=== PATIENT | female | born 1950 | race Caucasian/White ===

== ENCOUNTER 2020-11-01 08:34 | Emergency (ER) | payer MEDICARE, OTHER ==
[2020-11-01] MEDS: Sodium Chloride 0.9% 1,000 ML IV SCH (09:07)
--- NOTE | 2020-11-01 09:10 | EDM.PDOC ---
ED HPI GENERAL MEDICAL PROBLEM - General Chief Complaint: Gastrointestinal Problem Stated Complaint: COVID SYMPTOMS Time Seen by Provider: 11/01/20 08:50 Source of Information: Reports: Patient History Limitations: Reports: No Limitations - History of Present Illness INITIAL COMMENTS - FREE TEXT/NARRATIVE: States she has had diarrhea since the 21 of october , diarrhea ,water stools with cramps in the abdomen . has been persistent despite having a televisit with her provider on tuesday and being told to stay on BRAT diet today still has diarrhea and lost her sense of taste and smell has history of diverticulitis and Cl diff ( after use of Cipro for diverticulitis) Went to visit mother in skilled nursing ( has COVID) Onset: Gradual Onset Date: 10/21/20 Duration: Week(s):, Getting Worse Location: Reports: Abdomen Quality: Reports: Ache, Pressure Severity: Moderate Improves with: Reports: None Worsens with: Reports: None Context: Reports: Sick Contact Associated Symptoms: Reports: Diaphoresis, Loss of Appetite, Malaise, Weakness, Other (loss of sense of taste and smell) - Related Data Allergies Allergy/AdvReac Type Severity Reaction Status Date / Time azithromycin Allergy Hives Verified 11/01/20 08:58 nitrofurantoin AdvReac Stomach Verified 11/01/20 08:58 [From Macrobid] Upset Sulfa (Sulfonamide AdvReac Stomach Verified 11/01/20 08:58 Antibiotics) Upset Home Meds: Home Meds Aspirin [Ecotrin EC] 81 mg PO DAILY 12/01/16 [History] Calcium Carbonate/Vitamin D3 [Calcium 1,000 + D3 Caplet] 1 each PO DAILY 12/01/16 [History] Carboxymethylcellulos/Glycerin [Lubricant 0.5-0.9% Eye Drops] 1 drop EYEBOTH BID 12/01/16 [History] Ergocalciferol (Vitamin D2) [Vitamin D] 400 unit PO DAILY 12/01/16 [History] Folic Acid 1 tab PO DAILY 12/01/16 [History] Lutein 20 mg PO DAILY 12/01/16 [History] Multivitamin [Multi-Vitamin Daily] 1 tab PO DAILY 12/01/16 [History] Omeprazole 40 mg PO DAILY 12/01/16 [History] Pilocarpine HCl 5 mg PO QID 12/01/16 [History] Ranitidine [Zantac] 150 mg PO BID PRN 12/01/16 [History] atorvaSTATin [Lipitor] 20 mg PO BEDTIME 12/01/16 [History] Ondansetron [Zofran ODT] 4 mg PO Q6H PRN #20 tab.dis 11/01/20 [Rx] metroNIDAZOLE [Metronidazole] 500 mg PO BID #20 tablet 11/01/20 [Rx] Past Medical History HEENT History: Reports: Glaucoma, Other (See Below) Other HEENT History: BILAT NUCLEAR SCLEROSIS Cardiovascular History: Reports: High Cholesterol Gastrointestinal History: Reports: GERD - Past Surgical History Female Surgical History: Reports: Section, Hysterectomy Social & Family History - Tobacco Use Tobacco Use Status *Q: Never Tobacco User - Caffeine Use Caffeine Use: Reports: Coffee - Recreational Drug Use Recreational Drug Use: No ED ROS GENERAL - Review of Systems Review Of Systems: See Below Constitutional: Reports: Malaise, Weakness, Fatigue, Diaphoresis, Decreased Appetite, Weight Loss. Denies: Fever, Chills HEENT: Reports: No Symptoms Respiratory: Reports: No Symptoms Cardiovascular: Reports: No Symptoms Endocrine: Reports: Fatigue GI/Abdominal: Reports: Abdominal Pain, Anorexia, Diarrhea, Decreased Appetite, Distension, Flatus, Nausea Musculoskeletal: Reports: No Symptoms Skin: Reports: No Symptoms Neurological: Reports: No Symptoms Psychiatric: Reports: Anxiety Hematologic/Lymphatic: Reports: No Symptoms Immunologic: Reports: No Symptoms ED EXAM, GI/ABD - Physical Exam Exam: See Below Exam Limited By: No Limitations General Appearance: Alert, WD/WN, No Apparent Distress. No: Mild Distress, Active Emesis Eyes: Bilateral: EOMI Ears: Normal External Exam Nose: Normal Inspection Throat/Mouth: Normal Oropharynx (dry mucous membranes) Head: Atraumatic Neck: Supple, Non-Tender Respiratory/Chest: Lungs Clear, Normal Breath Sounds Cardiovascular: Regular Rate, Rhythm GI/Abdominal Exam: Soft, Non-Tender, Distended, Abnormal Bowel Sounds (hypera ctive BS) Back Exam: Full Range of Motion Extremities: Normal Inspection, No Pedal Edema Neurological: Alert, Oriented, CN II-XII Intact Psychiatric: Normal Affect, Normal Mood Skin Exam: Warm, Dry Course - Vital Signs Last Recorded V/S: Last Vital Signs Temp 36.4 C 11/01/20 08:50 Pulse 71 12/05/20 10:44 Resp 16 11/01/20 10:44 BP 134/67 11/01/20 10:44 Pulse Ox 100 11/01/20 10:44 - Orders/Labs/Meds Orders: Active Orders 24 hr Category Date Time Status Abdomen Pelvis w Cont [CT] Stat Exams 11/01/20 08:59 Taken STOOL CULTURE Stat Lab 11/01/20 08:58 Ordered Sodium Chloride 0.9% [Normal Saline] 1,000 ml Med 11/01/20 09:00 Active IV ASDIRECTED Medication Orders Sodium Chloride (Normal Saline) 1,000 mls @ 999 mls/hr IV ASDIRECTED RADHA Last Admin: 11/01/20 09:07 Dose: 999 mls/hr Documented by: RAMON Labs: Laboratory Tests 11/01/20 11/01/20 11/01/20 Range/Units 09:10 09:15 09:15 WBC 6.0 (3.0-10.3) x10-3/uL RBC 4.46 (3.60-5.20) x10(6)uL Hgb 13.2 (11.4-15.5) g/dL Hct 40.7 (34.2-48.2) % MCV 91.2 (76.7-100.5) fL MCH 29.7 (23.9-33.9) pg MCHC 32.5 (31.9-34.8) g/dL RDW 13.5 (12.3-16.5) % Plt Count 224 (151-488) x10(3)uL MPV 8.5 (7.1-12.4) fL Neut % (Auto) 72.5 (30.8-76.2) % Lymph % (Auto) 18.1 L (18.4-52.1) % Hendricks % (Auto) 7.9 (4.4-15.7) % Eos % (Auto) 0.8 (0.6-8.1) % Baso % (Auto) 0.7 (0.2-1.5) % Neut # (Auto) 4.4 (1.5-6.3) x10-3/uL Lymph # (Auto) 1.1 (1.0-4.4) x10-3/uL Hendricks # (Auto) 0.5 (0.3-1.0) x10-3/uL Eos # (Auto) 0.1 (0.0-0.8) x10-3/uL Baso # (Auto) 0.0 (0.0-0.1) x10-3/uL Sodium 141 (135-145) mmol/L Potassium 4.7 (3.5-5.3) mmol/L Chloride 105 (100-110) mmol/L Carbon Dioxide 26 (21-32) mmol/L BUN 9 (7-18) mg/dL Creatinine 0.9 (0.55-1.02) mg/dL Est Cr Clr Drug Dosing 45.41 mL/min Estimated GFR (MDRD) > 60 (>60) BUN/Creatinine Ratio 10.0 (9-20) Glucose 94 (80-116) mg/dL Calcium 8.8 (8.6-10.2) mg/dL Total Bilirubin 0.6 (0.1-1.3) mg/dL AST 19 (5-25) IU/L ALT 26 (12-36) U/L Alkaline Phosphatase 42 L (56-112) IU/L Total Protein 6.9 (6.0-8.0) g/dL Albumin 3.7 (3.2-4.6) g/dL Globulin 3.2 g/dL Albumin/Globulin Ratio 1.2 Urine Color (YELLOW) Urine Appearance (CLEAR) Urine pH (5.0-6.5) Ur Specific [place] (1.010-1.025) Urine Protein (NEGATIVE) mg/dL Urine Glucose (UA) (NORMAL) mg/dL Urine Ketones (NEGATIVE) mg/dL Urine Occult Blood (NEGATIVE) Urine Nitrite (NEGATIVE) Urine Bilirubin (NEGATIVE) Urine Urobilinogen (NEGATIVE) mg/dL Ur Leukocyte Esterase (NEGATIVE) Urine RBC (0-5) Urine WBC (0-5) Ur Squamous Epith Cells (NS,R,O) SARS-CoV-2 RNA (KEARA) Negative (NEGATIVE) 11/01/20 Range/Units 10:10 WBC (3.0-10.3) x10-3/uL RBC (3.60-5.20) x10(6)uL Hgb (11.4-15.5) g/dL Hct (34.2-48.2) % MCV (76.7-100.5) fL MCH (23.9-33.9) pg MCHC (31.9-34.8) g/dL RDW (12.3-16.5) % Plt Count (151-488) x10(3)uL MPV (7.1-12.4) fL Neut % (Auto) (30.8-76.2) % Lymph % (Auto) (18.4-52.1) % Hendricks % (Auto) (4.4-15.7) % Eos % (Auto) (0.6-8.1) % Baso % (Auto) (0.2-1.5) % Neut # (Auto) (1.5-6.3) x10-3/uL Lymph # (Auto) (1.0-4.4) x10-3/uL Hendricks # (Auto) (0.3-1.0) x10-3/uL Eos # (Auto) (0.0-0.8) x10-3/uL Baso # (Auto) (0.0-0.1) x10-3/uL Sodium (135-145) mmol/L Potassium (3.5-5.3) mmol/L Chloride (100-110) mmol/L Carbon Dioxide (21-32) mmol/L BUN (7-18) mg/dL Creatinine (0.55-1.02) mg/dL Est Cr Clr Drug Dosing mL/min Estimated GFR (MDRD) (>60) BUN/Creatinine Ratio (9-20) Glucose (80-116) mg/dL Calcium (8.6-10.2) mg/dL Total Bilirubin (0.1-1.3) mg/dL AST (5-25) IU/L ALT (12-36) U/L Alkaline Phosphatase (56-112) IU/L Total Protein (6.0-8.0) g/dL Albumin (3.2-4.6) g/dL Globulin g/dL Albumin/Globulin Ratio Urine Color Yellow (YELLOW) Urine Appearance Clear (CLEAR) Urine pH 7.0 H (5.0-6.5) Ur Specific [place] 1.010 (1.010-1.025) Urine Protein Negative (NEGATIVE) mg/dL Urine Glucose (UA) Normal (NORMAL) mg/dL Urine Ketones Negative (NEGATIVE) mg/dL Urine Occult Blood Negative (NEGATIVE) Urine Nitrite Negative (NEGATIVE) Urine Bilirubin Negative (NEGATIVE) Urine Urobilinogen Normal (NEGATIVE) mg/dL Ur Leukocyte Esterase Negative (NEGATIVE) Urine RBC 0-5 (0-5) Urine WBC 0-5 (0-5) Ur Squamous Epith Cells Rare (NS,R,O) SARS-CoV-2 RNA (KEARA) (NEGATIVE) Meds: Medications Generic Name Dose Route Start Last Admin Trade Name Freq PRN Reason Stop Dose Admin Sodium Chloride 1,000 mls @ 999 mls/hr 11/01/20 09:00 11/01/20 09:07 Normal Saline IV 999 mls/hr ASDIRECTED RADHA Administration Discontinued Medications Generic Name Dose Route Start Last Admin Trade Name Freq PRN Reason Stop Dose Admin Iopamidol 100 ml 11/01/20 10:01 11/01/20 10:56 Isovue-370 (76%) IV 11/01/20 10:02 54 ml . DIRECTED ONE Administration Metronidazole 500 mg 11/01/20 09:04 11/01/20 09:16 Flagyl PO 11/01/20 09:05 500 mg ONETIME ONE Administration Ondansetron HCl 4 mg 11/01/20 09:04 11/01/20 09:16 Zofran IVPUSH 11/01/20 09:05 4 mg ONETIME ONE Administration - Re-Assessments/Exams Free Text/Narrative Re-Assessment/Exam: 11/01/20 09:19 pt had ivf started l, labs drawn Screened for COVID started on flagyl :CT abd ordered 11/01/20 11:42 CT report negative for any pathology pt feels better after flagyl zofran and fluids discussed after discharge plans with pt Departure - Departure Time of Disposition: 11:45 Disposition: Home, Self-Care 01 Condition: Good Clinical Impression: Colitis, Diverticulitis large intestine - Discharge Information *PRESCRIPTION DRUG MONITORING PROGRAM REVIEWED*: Not Applicable *COPY OF PRESCRIPTION DRUG MONITORING REPORT IN PATIENT LYSSA: Not Applicable Prescriptions: metroNIDAZOLE [Metronidazole] 500 mg PO BID #20 tablet Ondansetron [Zofran ODT] 4 mg PO Q6H PRN #20 tab.dis PRN Reason: Nausea Instructions: Diverticulitis, [id number], Food Choices to Help Relieve Diarrhea, Adult, Diarrhea, Adult, [id number] Referrals: PCP,None [Ordering Only Provider] - Forms: ED Department Discharge Additional Instructions: Increase fluid intake Continue with BRAT diet , gradually increase to regular diet over 3-5 days Increase dose of probiotic to 2 times daily Sepsis Event Note (ED) - Evaluation Sepsis Screening Result: No Definite Risk - Focused Exam Vital Signs: Vital Signs Temp Pulse Resp BP Pulse Ox 11/01/20 10:44 71 16 134/67 100 11/01/20 08:50 36.4 C 76 16 122/71 100 - My Orders Last 24 Hours: My Active Orders 11/01/20 08:58 STOOL CULTURE Stat 11/01/20 08:59 Abdomen Pelvis w Cont [CT] Stat 11/01/20 09:00 Sodium Chloride 0.9% [Normal Saline] 1,000 ml IV ASDIRECTED - Assessment/Plan Last 24 Hours: My Active Orders 11/01/20 08:58 STOOL CULTURE Stat 11/01/20 08:59 Abdomen Pelvis w Cont [CT] Stat 11/01/20 09:00 Sodium Chloride 0.9% [Normal Saline] 1,000 ml IV ASDIRECTED
[2020-11-01] MEDS: Ondansetron 4 MG/2 ML SDV IVPUSH ONE (09:16)
[2020-11-01] MEDS: metroNIDAZOLE 500 MG Tab PO ONE (09:16)
[2020-11-01] MEDS: Iopamidol 755 Mg/ML 100 ML Bottle IV ONE (10:56)
[2020-11-01 10:59] VITALS: BP 134/67; PULSE 71
== END 2020-11-01 12:20 | disposition home or self-care (01) ==
LOC: FB.ED 08:34
DX: K57.32 Diverticulitis of large intestine without perforation or abscess without bleeding (principal); K52.9 Noninfective gastroenteritis and colitis, unspecified; K21.9 Gastro-esophageal reflux disease without esophagitis; E78.00 Pure hypercholesterolemia, unspecified; Z20.828 Contact with and (suspected) exposure to other viral communicable diseases; Z88.2 Allergy status to sulfonamides; Z88.1 Allergy status to other antibiotic agents; Z79.82 Long term (current) use of aspirin; Z79.899 Other long term (current) drug therapy; Z90.710 Acquired absence of both cervix and uterus
CPT/HCPCS: 36415; 74177; 80053; 81001; 85025; 87045; 87046; 87427; 96374; 99284; 99284-25; A9270-GY; J2405; J7030; Q9967; U0002

== ENCOUNTER 2020-11-18 10:38 | Day surgery (SDC) | payer MEDICARE, OTHER ==
[2020-11-18] MEDS ORDERED: Propofol 200 MG/20 ML SDV IV ONE (10:39)
[2020-11-18] MEDS ORDERED: Ondansetron 4 MG/2 ML SDV IVPUSH ONE (10:39)
[2020-11-18] MEDS ORDERED: Lidocaine 2% 5 ML SDV INJECT ONE (10:39)
[2020-11-18] MEDS ORDERED: Midazolam 1 MG/ML 2 ML SDV IV ONE (10:39)
[2020-11-18] MEDS ORDERED: Lactated Ringers 1,000 ML IV SCH (10:45)
[2020-11-18] MEDS ORDERED: Sodium Chloride 0.9% 10 ML Syringe FLUSH PRN (10:45)
[2020-11-18] MEDS ORDERED: Lidocaine 1% with EPINEPHrine 1:100,000 20 ML MDV INJECT ONE (13:07)
[2020-11-18 13:33] VITALS: BP 117/70
[2020-11-18 13:47] VITALS: PULSE 67
--- NOTE | 2020-11-18 14:49 | OR ---
DATE OF OPERATION: 11/18/2020 SURGEON: Pradeep Padilla MD PREOPERATIVE DIAGNOSES: 1. Heartburn. 2. Need for minor salivary gland to rule out Sjogren's syndrome. POSTOPERATIVE DIAGNOSES: 1. Heartburn. 2. Need for minor salivary gland to rule out Sjogren's syndrome. PROCEDURE: 1. Esophagogastroduodenoscopy with biopsy. 2. Minor salivary gland biopsy, lower lip. SURGEON: Pradeep Padilla MD. ANESTHESIA: MAC with local. DESCRIPTION OF PROCEDURE: The patient was brought to the procedure room, where she was placed on her left side and oral bite block placed. Upper endoscope was advanced into the esophagus under direct vision without difficulty. Vocal cords were viewed and were normal. The scope was advanced to the third portion of the duodenum. The duodenum and pylorus appear normal. Antrum and body of the stomach appeared to have mild chronic gastritis without any erosions or bleeding. Retroflexion reveals a normal-appearing fundus other than loose lower esophageal sphincter. Squamocolumnar junction appears normal. I did 4-quadrant biopsies from the first portion of the duodenum for celiac disease. I also took separate biopsies from the antrum and body of the stomach. Lastly, I took distal esophageal biopsies because of her heartburn and reflux symptoms. Photographs were taken. Air was removed and the scope withdrawn. The patient tolerated this portion of the procedure well. Lower lip biopsy was then performed after everting lower lip and anesthetizing with 1% Lidocaine with epinephrine to the left of the midline. A small transverse incision was made and 4 minor salivary glands measuring 2 to 3 mm in diameter were removed. Incision was closed with interrupted 5-0 Vicryl. The patient tolerated this well. Blood loss negligible. She returned to postanesthesia in stable condition. However, follow up with Sonia Wall next week for review of biopsies. /[id number] FLIP/AB
--- NOTE | 2020-11-25 08:30 | PCM.OPNOTE ---
- General Post-Op/Procedure Note Date of Surgery/Procedure: 11/18/20 Operative Procedure(s): EGD. Minor Salivary gland Bx lower lip Pre Op Diagnosis: Heartburn Post-Op Diagnosis: Same Anesthesia Technique: Local, MAC Primary Surgeon: Pradeep ZULUAGA in mLs: 2 Complications: None Condition: Good
--- NOTE | 2020-11-25 08:30 | PCM.HPR ---
H & P Addendum review - H & P Addendum Review Date of Original H & P: 11/14/20 Date Reviewed: 11/18/20 Time Reviewed: 12:00 Patient was Examined: No Changes
== END 2020-11-18 14:10 | disposition home or self-care (01) ==
LOC: FB.SDS 10:38
PROVIDERS: ATTEND Surgery
DX: K11.23 Chronic sialoadenitis (principal); K29.50 Unspecified chronic gastritis without bleeding; K31.89 Other diseases of stomach and duodenum; E78.5 Hyperlipidemia, unspecified; B34.9 Viral infection, unspecified; Z88.8 Allergy status to other drugs, medicaments and biological substances; Z88.2 Allergy status to sulfonamides; Z79.899 Other long term (current) drug therapy; Z86.19 Personal history of other infectious and parasitic diseases
CPT/HCPCS: 00731; 42405; 43239; J2001; J2250; J2405; J2704; J7120

== ENCOUNTER 2025-09-19 08:11 | Emergency (ER) | payer MEDICARE, OTHER ==
[2025-09-19] MEDS: Alum Hydroxide/Mag Hydroxide 30 ML, Lidocaine 2% 15 ML PO ONE (09:00)
[2025-09-19 09:10] LABS: BASOPHILS ABSOLUTE AUTO 0.0 x10-3/uL (0.0-0.1); BASOPHILS PERCENT AUTO 0.4 % (0.2-1.5); EOSINOPHILS ABSOLUTE AUTO 0.1 x10-3/uL (0.0-0.8); EOSINOPHILS PERCENT AUTO 2.2 % (0.6-8.1); LYMPHOCYTES ABSOLUTE AUTO 1.3 x10-3/uL (1.0-4.4); LYMPHOCYTES PERCENT AUTO 27.7 % (18.4-52.1); MEAN PLATELET VOLUME 8.4 fL (7.1-12.4); MONOCYTES ABSOLUTE AUTO 0.4 x10-3/uL (0.3-1.0); MONOCYTES PERCENT AUTO 9.0 % (4.4-15.7); NEUTROPHILS ABSOLUTE AUTO 2.7 x10-3/uL (1.5-6.3); NEUTROPHILS PERCENT AUTO 60.7 % (30.8-76.2); PLATELET COUNT,PLT 219 x10(3)uL (151-488); RED BLOOD CELL COUNT 4.20 x10(6)uL (3.60-5.20); RED CELL DISTRIBUTION WIDTH 13.8 % (12.3-16.5); WHITE BLOOD CELL COUNT,WBC 4.5 x10-3/uL (3.0-10.3)
[2025-09-19 09:14] LABS: BLOOD UREA NITROGEN,BUN 14 mg/dL (7-18); CARBON DIOXIDE,CO2 32 mmol/L (21-32); CHLORIDE,CL 104 mmol/L (100-110); CREATININE 0.8 mg/dL (0.55-1.02); EST CRCL DRUG DOSING (CG) 45.74 mL/min; ESTIMATED GFR 78 mL/min (>60); GLUCOSE RANDOM 88 mg/dL (80-116); POTASSIUM,K 4.2 mmol/L (3.5-5.3); SODIUM,NA 140 mmol/L (135-145)
[2025-09-19 10:11] VITALS: BP 111/70; PULSE 67
== END 2025-09-19 10:45 | disposition home or self-care (01) ==
LOC: FB.ED 08:11
DX: K21.00 Gastro-esophageal reflux disease with esophagitis, without bleeding (principal); E78.00 Pure hypercholesterolemia, unspecified; Z88.1 Allergy status to other antibiotic agents; Z88.2 Allergy status to sulfonamides; Z88.8 Allergy status to other drugs, medicaments and biological substances; Z79.899 Other long term (current) drug therapy; Z90.49 Acquired absence of other specified parts of digestive tract
CPT/HCPCS: 36415; 80048; 84484; 85025; 86140; 93005; 93010; 99284; 99285; A9270-GY